=== PATIENT | male | born 1980 | race African-American/Black ===

== ENCOUNTER 2021-03-09 14:48 | Inpatient (IN) | payer MEDICAID ==
[~2021-03-09] VITALS: Ht 170.2 cm; Wt 99.8 kg
[~2021-03-09 14:48] MED LIST: CLON0.2T12 PO; LOSA100T3 PO; NIFE-32 PO
[2021-03-09] MEDS ORDERED: PIPERACILLIN/TAZ 3.375G PREMIX 50 ML IV ONE (15:30)
[2021-03-09 15:46] LABS: HEMATOCRIT. 40.9 % (42.0-52.0); HEMOGLOBIN. 14.4 g/dL (14.0-18.0); MEAN CORPUSCULAR HEMOGLOBIN 33.6 pg (28.0-32.0); MEAN CORPUSCULAR VOLUME 95.7 fL (80.0-94.0); MEAN PLATELET VOLUME 11.1 fl (7.4-10.4); PLATELET 165 x1000/uL (130-400); RED BLOOD CELL COUNT 4.28 mill/uL (4.7-6.1); RED CELL DISTRIBUTION WIDTH 15.4 % (11.6-14.6)
[2021-03-09 15:52] LABS: CHLORIDE 103 mEq/L (98-107)
[2021-03-09 15:54] LABS: D-DIMER 0.38 mg/L FEU (<0.50); INR 1.1; PROTHROMBIN TIME 11.9 sec (9.6-11.0)
[2021-03-09] MEDS ORDERED: NITROGLYCERIN OINT 1GM/INCH UDPKT TD ONE (16:00)
[2021-03-09 16:16] LABS: PLATELET ESTIMATE NORMAL
[2021-03-09] MEDS ORDERED: ASPIRIN 325MG EC TABLET PO ONE (17:15)
[2021-03-09] MEDS: NITROGLYCERIN 0.4MG TABLET SL SL PRN ×2 (17:22→17:57)
[2021-03-09] MEDS ORDERED: ONDANSETRON HCL 4MG/2ML INJ IV NR (17:30)
[2021-03-09] MEDS ORDERED: MORPHINE SULFATE 4 MG/ML CPJ (NOT FOR IM USE) IV NR (17:30)
[2021-03-09] MEDS ORDERED: LORAZEPAM 0.5MG TABLET PO PRN (19:45)
[2021-03-09] MEDS ORDERED: HYDROCODONE/ACETAMINOPHEN 5/325MG TABLET PO PRN (19:45)
[2021-03-09] MEDS ORDERED: DOCUSATE SODIUM 100MG CAPSULE PO PRN (19:45)
[2021-03-09] MEDS ORDERED: IPRATROPIUM/ALBUTEROL 0.5-3(2.5)MG/3ML NEB HHN PRN (19:45)
[2021-03-09] MEDS: FUROSEMIDE 40MG/4ML VIAL IV SCH (20:11)
[2021-03-09] MEDS: CLONIDINE 0.1MG TABLET PO PRN (20:11)
[2021-03-09] MEDS: HYDRALAZINE 20MG/ML VIAL IV PRN (20:57)
[2021-03-09] MEDS ORDERED: CEFTRIAXONE 1 G PREMIX 50 ML IV SCH (23:00)
[2021-03-09] MEDS ORDERED: DEXAMETHASONE 4MG TABLET PO SCH (23:00)
[2021-03-10] VITALS (9 sets, daily range): BP systolic 133–162; BP diastolic 83–119
[2021-03-10] MEDS ORDERED: AZITHROMYCIN 500MG in DEXTROSE 5% WATER 250ML IV SCH
[2021-03-10] MEDS: AZITHROMYCIN 500MG in DEXTROSE 5% WATER 250ML IV SCH (04:25)
[2021-03-10 05:43] LABS: HEMATOCRIT. 42.5 % (42.0-52.0); HEMOGLOBIN. 15.3 g/dL (14.0-18.0); MEAN CORPUSCULAR HEMOGLOBIN 34.6 pg (28.0-32.0); MEAN CORPUSCULAR VOLUME 96.4 fL (80.0-94.0); MEAN PLATELET VOLUME 11.6 fl (7.4-10.4); PLATELET 169 x1000/uL (130-400); RED BLOOD CELL COUNT 4.41 mill/uL (4.7-6.1); RED CELL DISTRIBUTION WIDTH 15.4 % (11.6-14.6)
[2021-03-10] MEDS: CLONIDINE 0.1MG TABLET PO PRN ×2 (05:59→16:54)
[2021-03-10] MEDS: FUROSEMIDE 40MG/4ML VIAL IV SCH ×2 (09:08→16:27)
[2021-03-10] MEDS: ENOXAPARIN 30MG/0.3ML SYR SUBCUT SCH ×2 (09:09→20:36)
[2021-03-10 13:54] LABS: PLATELET ESTIMATE NORMAL
[2021-03-10] MEDS: CEFTRIAXONE 1,000 MG in DEXTROSE 5% WATER 50 ML IV SCH (20:34)
[2021-03-10] MEDS: AMLODIPINE 5MG TABLET PO SCH (20:35)
[2021-03-10] MEDS: FAMOTIDINE 20MG TABLET PO SCH (20:35)
[2021-03-10] MEDS: DEXAMETHASONE 4MG TABLET PO SCH (20:35)
[2021-03-10] MEDS: CARVEDILOL 6.25 MG TABLET PO SCH (20:35)
[2021-03-11] VITALS: BP 148/100
[2021-03-11 00:51] LABS: CLARITY URINE CLEAR (CLEAR); COLOR URINE YELLOW (YELLOW); KETONES URINE NEGATIVE (NEGATIVE); LEUKOCYTE ESTERASE URINE NEGATIVE (NEGATIVE); NITRITE URINE NEGATIVE (NEGATIVE); OCCULT BLOOD URINE NEGATIVE (NEGATIVE); PROTEIN URINE TRACE (NEGATIVE); SPECIFIC GRAVITY URINE 1.015 (1.005-1.030); UROBILINOGEN URINE 0.2 E.U./dL (0.2-1.0)
[2021-03-11 04:00] VITALS: BP 148/109
[2021-03-11] MEDS: CLONIDINE 0.1MG TABLET PO PRN (04:01)
[2021-03-11 06:42] LABS: HEMATOCRIT. 44.1 % (42.0-52.0); MEAN CORPUSCULAR HEMOGLOBIN 32.8 pg (28.0-32.0); MEAN CORPUSCULAR VOLUME 96.6 fL (80.0-94.0); PLATELET 187 x1000/uL (130-400); RED BLOOD CELL COUNT 4.56 mill/uL (4.7-6.1); RED CELL DISTRIBUTION WIDTH 15.5 % (11.6-14.6)
[2021-03-11 08:00] VITALS: BP 134/89
[2021-03-11] MEDS: AMLODIPINE 5MG TABLET PO SCH (08:15)
[2021-03-11] MEDS: FUROSEMIDE 40MG/4ML VIAL IV SCH (08:15)
[2021-03-11] MEDS: ENOXAPARIN 30MG/0.3ML SYR SUBCUT SCH ×2 (08:15→20:18)
[2021-03-11] MEDS: ASPIRIN 81MG EC TABLET PO SCH (08:15)
[2021-03-11] MEDS: CARVEDILOL 6.25 MG TABLET PO SCH ×2 (08:15→20:18)
[2021-03-11] MEDS: AZITHROMYCIN 500MG in DEXTROSE 5% WATER 250ML IV SCH (08:16)
[2021-03-11 12:00] VITALS: BP 130/89
[2021-03-11 16:00] VITALS: BP 118/94
[2021-03-11 16:44] LABS: PLATELET ESTIMATE NORMAL
[2021-03-11 19:17] VITALS: BP 141/111
[2021-03-11] MEDS: CEFTRIAXONE 1,000 MG in DEXTROSE 5% WATER 50 ML IV SCH (20:17)
[2021-03-11] MEDS: DEXAMETHASONE 4MG TABLET PO SCH (20:17)
[2021-03-11] MEDS: FAMOTIDINE 20MG TABLET PO SCH (20:18)
[2021-03-12 00:05] VITALS: BP 133/86
[2021-03-12] MEDS: CLONIDINE 0.1MG TABLET PO PRN (03:35)
[2021-03-12 04:03] VITALS: BP 157/110
[2021-03-12 07:13] LABS: PHOSPHORUS 3.7 mg/dL (2.5-4.9)
[2021-03-12 08:00] VITALS: BP 150/110
[2021-03-12] MEDS: ASPIRIN 81MG EC TABLET PO SCH (08:03)
[2021-03-12] MEDS: BENZONATATE 100MG CAPSULE PO PRN (08:03)
[2021-03-12] MEDS: CARVEDILOL 6.25 MG TABLET PO SCH ×2 (08:03→20:34)
[2021-03-12 08:04] LABS: HEMATOCRIT. 45.8 % (42.0-52.0); HEMOGLOBIN. 15.2 g/dL (14.0-18.0); MEAN CORPUSCULAR HEMOGLOBIN 32.3 pg (28.0-32.0); MEAN CORPUSCULAR VOLUME 97.4 fL (80.0-94.0); MEAN PLATELET VOLUME 12.3 fl (7.4-10.4); PLATELET 181 x1000/uL (130-400); RED CELL DISTRIBUTION WIDTH 15.7 % (11.6-14.6)
[2021-03-12] MEDS: LOSARTAN POTASSIUM 50 MG TABLET PO SCH (08:04)
[2021-03-12] MEDS: ENOXAPARIN 30MG/0.3ML SYR SUBCUT SCH ×2 (08:04→20:33)
[2021-03-12] MEDS ORDERED: FUROSEMIDE 40MG/4ML VIAL IV SCH (09:00)
[2021-03-12] MEDS ORDERED: NIFEDIPINE XL 30MG TAB PO SCH ×2 (09:00)
[2021-03-12] MEDS: AZITHROMYCIN 500MG in DEXTROSE 5% WATER 250ML IV SCH (09:09)
[2021-03-12 12:00] VITALS: BP 126/100
[2021-03-12 14:14] LABS: PLATELET ESTIMATE NORMAL
[2021-03-12 16:00] VITALS: BP 143/103
[2021-03-12 20:00] VITALS: BP 161/118
[2021-03-12] MEDS: DEXAMETHASONE 4MG TABLET PO SCH (20:33)
[2021-03-12] MEDS: CEFTRIAXONE 1,000 MG in DEXTROSE 5% WATER 50 ML IV SCH (20:33)
[2021-03-12] MEDS: GUAIFENESIN 600MG ER TABLET PO SCH (20:33)
[2021-03-12] MEDS: FAMOTIDINE 20MG TABLET PO SCH (20:33)
[2021-03-13] VITALS (8 sets, daily range): BP systolic 119–169; BP diastolic 82–118
[2021-03-13] MEDS: BENZONATATE 100MG CAPSULE PO PRN ×3 (01:24→16:59)
[2021-03-13] MEDS: CARVEDILOL 6.25 MG TABLET PO SCH ×2 (08:04→20:07)
[2021-03-13] MEDS: NIFEDIPINE XL 60MG TAB PO SCH (08:04)
[2021-03-13] MEDS: ASPIRIN 81MG EC TABLET PO SCH (08:04)
[2021-03-13] MEDS: LOSARTAN POTASSIUM 50 MG TABLET PO SCH (08:04)
[2021-03-13] MEDS: ENOXAPARIN 30MG/0.3ML SYR SUBCUT SCH ×2 (08:04→20:07)
[2021-03-13] MEDS: FUROSEMIDE 40MG TABLET PO SCH (08:04)
[2021-03-13] MEDS: GUAIFENESIN 600MG ER TABLET PO SCH ×2 (08:04→20:07)
[2021-03-13] MEDS: AZITHROMYCIN 500MG in DEXTROSE 5% WATER 250ML IV SCH (08:05)
[2021-03-13] MEDS: CLONIDINE 0.1MG TABLET PO PRN (11:28)
[2021-03-13] MEDS: ALBUTEROL 6.7GM HFA INHALER ORI PRN (18:08)
[2021-03-13] MEDS: CEFTRIAXONE 1,000 MG in DEXTROSE 5% WATER 50 ML IV SCH (20:05)
[2021-03-13] MEDS: DEXAMETHASONE 4MG TABLET PO SCH (20:06)
[2021-03-13] MEDS: ACETAMINOPHEN 325MG TABLET PO PRN (20:06)
[2021-03-13] MEDS: FAMOTIDINE 20MG TABLET PO SCH (20:07)
[2021-03-14] VITALS (7 sets, daily range): BP systolic 144–175; BP diastolic 90–125
[2021-03-14] MEDS: BENZONATATE 100MG CAPSULE PO PRN ×2 (01:28→16:26)
[2021-03-14] MEDS: CLONIDINE 0.1MG TABLET PO PRN ×2 (04:02→08:56)
[2021-03-14] MEDS: ACETAMINOPHEN 325MG TABLET PO PRN ×2 (04:02→21:16)
[2021-03-14] MEDS: ALBUTEROL 6.7GM HFA INHALER ORI PRN ×2 (05:21→15:46)
[2021-03-14 07:42] LABS: BASOPHILS % 0.3 % (0.0-2.0); HEMATOCRIT. 45.3 % (42.0-52.0); HEMOGLOBIN. 15.9 g/dL (14.0-18.0); LYMPHOCYTES % 9.2 % (20.0-50.0); MEAN CORPUSCULAR HEMOGLOBIN 33.8 pg (28.0-32.0); MEAN CORPUSCULAR VOLUME 96.4 fL (80.0-94.0); MONOCYTES % 10.8 % (2.0-8.0); NEUTROPHILS % 79.7 % (40.0-76.0); RED CELL DISTRIBUTION WIDTH 15.4 % (11.6-14.6)
[2021-03-14 08:18] LABS: PLATELET 155 x1000/uL (130-400)
[2021-03-14] MEDS: CARVEDILOL 6.25 MG TABLET PO SCH (08:55)
[2021-03-14] MEDS: ASPIRIN 81MG EC TABLET PO SCH (08:55)
[2021-03-14] MEDS: GUAIFENESIN 600MG ER TABLET PO SCH (08:56)
[2021-03-14] MEDS: NIFEDIPINE XL 60MG TAB PO SCH (08:56)
[2021-03-14] MEDS: FUROSEMIDE 40MG TABLET PO SCH (08:56)
[2021-03-14] MEDS: LOSARTAN POTASSIUM 50 MG TABLET PO SCH (08:56)
[2021-03-14] MEDS: ENOXAPARIN 30MG/0.3ML SYR SUBCUT SCH ×2 (08:57→21:18)
[2021-03-14] MEDS ORDERED: AZITHROMYCIN 500 MG TABLET PO SCH (09:00)
[2021-03-14] MEDS: NIFEDIPINE XL 90MG TAB PO SCH (16:26)
[2021-03-14 17:38] LABS: BG BASE EXCESS -2.3 mmol/L (-2.0-2.0); BG CARBOXYHEMOGLOBIN 0.7 % (0.5-1.5); BG DEOXYHEMOGLOBIN 7.5 % (0.0-5.0); BG FRACTION INSPIRED OXYGEN 21; BG HCO3 ACT 20.1 mmol/L (22.0-26.0); BG METHEMOGLOBIN 0.2 % (0.0-1.5); BG OXYGEN SATURATION 92.4 % (92.0-98.5); BG OXYHEMOGLOBIN 91.6 % (94.0-97.0); BG PCO2 29.2 mmHg (35.0-45.0); BG PH 7.455 (7.350-7.450); BG PO2 62.8 mmHg (75.0-100.0); BG SAMPLE SITE RIGHT RADIAL; BG TOTAL HEMOGLOBIN 16.8 g/dL (12.0-18.0); BG VENT MODE ROOM AIR
[2021-03-14] MEDS ORDERED: NIFEDIPINE XL 60MG TAB PO SCH (18:00)
[2021-03-14] MEDS: DEXAMETHASONE 4MG TABLET PO SCH (21:17)
[2021-03-14] MEDS: FAMOTIDINE 20MG TABLET PO SCH (21:17)
[2021-03-14] MEDS: CARVEDILOL 12.5MG TABLET PO SCH (21:17)
[2021-03-14] MEDS: CEFTRIAXONE 1,000 MG in DEXTROSE 5% WATER 50 ML IV SCH (21:18)
[2021-03-15] VITALS: BP 123/77
[2021-03-15 04:00] VITALS: BP 115/70
[2021-03-15] MEDS: NIFEDIPINE XL 90MG TAB PO SCH (05:23)
[2021-03-15 06:39] LABS: BASOPHILS % 0.2 % (0.0-2.0); HEMATOCRIT. 45.2 % (42.0-52.0); HEMOGLOBIN. 15.6 g/dL (14.0-18.0); MEAN CORPUSCULAR HEMOGLOBIN 33.1 pg (28.0-32.0); MEAN CORPUSCULAR VOLUME 96.1 fL (80.0-94.0); MONOCYTES % 8.1 % (2.0-8.0); NEUTROPHILS % 79.7 % (40.0-76.0); RED BLOOD CELL COUNT 4.71 mill/uL (4.7-6.1); RED CELL DISTRIBUTION WIDTH 15.3 % (11.6-14.6)
[2021-03-15 08:00] VITALS: BP 125/87
[2021-03-15] MEDS: ENOXAPARIN 30MG/0.3ML SYR SUBCUT SCH ×2 (08:30→20:08)
[2021-03-15] MEDS: CARVEDILOL 12.5MG TABLET PO SCH (08:31)
[2021-03-15] MEDS: ASPIRIN 81MG EC TABLET PO SCH (08:31)
[2021-03-15] MEDS ORDERED: FUROSEMIDE 20MG/2ML VIAL IVP NR (09:30)
[2021-03-15] MEDS: GUAIFENESIN-DM 200MG-20MG/10ML UDC PO PRN ×2 (10:24→17:11)
[2021-03-15 12:38] VITALS: BP 107/73
[2021-03-15 13:24] LABS: MEAN PLATELET VOLUME 12.4 fl (7.4-10.4); PLATELET 158 x1000/uL (130-400)
[2021-03-15 13:56] LABS: SODIUM URINE RANDOM 20 mEq/L
[2021-03-15 16:00] VITALS: BP 133/88
[2021-03-15] MEDS: NIFEDIPINE XL 60MG TAB PO SCH (17:11)
[2021-03-15 20:00] VITALS: BP 142/91
[2021-03-15] MEDS: CARVEDILOL 6.25 MG TABLET PO SCH (20:07)
[2021-03-15] MEDS: FAMOTIDINE 20MG TABLET PO SCH (20:07)
[2021-03-15] MEDS: DEXAMETHASONE 4MG TABLET PO SCH (20:08)
[2021-03-15] MEDS: BENZONATATE 100MG CAPSULE PO PRN (20:18)
[2021-03-16] VITALS: BP 148/99
[2021-03-16] MEDS: GUAIFENESIN-DM 200MG-20MG/10ML UDC PO PRN ×2 (00:51→08:13)
[2021-03-16 04:00] VITALS: BP 122/79
[2021-03-16 07:03] LABS: BASOPHILS % 0.3 % (0.0-2.0); HEMATOCRIT. 45.2 % (42.0-52.0); HEMOGLOBIN. 15.7 g/dL (14.0-18.0); LYMPHOCYTES % 9.7 % (20.0-50.0); MEAN CORPUSCULAR HEMOGLOBIN 32.9 pg (28.0-32.0); MONOCYTES % 7.6 % (2.0-8.0); NEUTROPHILS % 82.4 % (40.0-76.0); RED BLOOD CELL COUNT 4.75 mill/uL (4.7-6.1); RED CELL DISTRIBUTION WIDTH 15.3 % (11.6-14.6)
[2021-03-16] MEDS: NIFEDIPINE XL 60MG TAB PO SCH ×2 (07:05→17:10)
[2021-03-16 07:23] LABS: CHLORIDE 97 mEq/L (98-107)
[2021-03-16 08:00] VITALS: BP 148/93
[2021-03-16] MEDS: ASPIRIN 81MG EC TABLET PO SCH (08:13)
[2021-03-16] MEDS: BENZONATATE 100MG CAPSULE PO PRN ×2 (08:13→22:08)
[2021-03-16] MEDS: CARVEDILOL 6.25 MG TABLET PO SCH ×2 (08:13→22:09)
[2021-03-16] MEDS: ENOXAPARIN 30MG/0.3ML SYR SUBCUT SCH ×2 (08:14→22:10)
[2021-03-16] MEDS: FUROSEMIDE 40MG/4ML VIAL IVP SCH (10:39)
[2021-03-16 11:05] LABS: MEAN PLATELET VOLUME 12.1 fl (7.4-10.4); PLATELET 162 x1000/uL (130-400)
[2021-03-16 11:30] LABS: BG BASE EXCESS -3.1 mmol/L (-2.0-2.0); BG CARBOXYHEMOGLOBIN 0.1 % (0.5-1.5); BG DEOXYHEMOGLOBIN 4.9 % (0.0-5.0); BG FRACTION INSPIRED OXYGEN 100; BG HCO3 ACT 19.5 mmol/L (22.0-26.0); BG METHEMOGLOBIN 0.2 % (0.0-1.5); BG OXYGEN SATURATION 95.1 % (92.0-98.5); BG OXYHEMOGLOBIN 94.8 % (94.0-97.0); BG PH 7.445 (7.350-7.450); BG SAMPLE SITE RIGHT RADIAL; BG TOTAL HEMOGLOBIN 15.7 g/dL (12.0-18.0); BG TOTAL RESPIRATORY RATE 40 b/min; BG VENT MODE MASK - BIPAP
[2021-03-16 12:00] VITALS: BP 139/85
[2021-03-16 16:00] VITALS: BP 154/98
[2021-03-16] MEDS ORDERED: IVERMECTIN 3 MG TABLET PO SCH (18:00)
[2021-03-16 20:00] VITALS: BP 160/91
[2021-03-16] MEDS: ACETAMINOPHEN 325MG TABLET PO PRN (22:08)
[2021-03-16] MEDS: DEXAMETHASONE 4MG TABLET PO SCH (22:09)
[2021-03-16] MEDS: FAMOTIDINE 20MG TABLET PO SCH (22:09)
[2021-03-17] VITALS: BP 91/64
[2021-03-17 04:24] VITALS: BP 132/74
[2021-03-17] MEDS: NIFEDIPINE XL 60MG TAB PO SCH ×2 (05:41→17:09)
[2021-03-17 06:36] LABS: BASOPHILS % 0.4 % (0.0-2.0); HEMATOCRIT. 46.5 % (42.0-52.0); LYMPHOCYTES % 8.6 % (20.0-50.0); MEAN CORPUSCULAR HEMOGLOBIN 32.9 pg (28.0-32.0); MEAN CORPUSCULAR VOLUME 95.6 fL (80.0-94.0); MONOCYTES % 5.1 % (2.0-8.0); NEUTROPHILS % 85.9 % (40.0-76.0); RED BLOOD CELL COUNT 4.86 mill/uL (4.7-6.1); RED CELL DISTRIBUTION WIDTH 15.7 % (11.6-14.6)
[2021-03-17 06:51] LABS: PHOSPHORUS 5.4 mg/dL (2.5-4.9)
[2021-03-17 07:59] VITALS: BP 120/84
[2021-03-17] MEDS: ENOXAPARIN 30MG/0.3ML SYR SUBCUT SCH ×2 (08:12→20:47)
[2021-03-17] MEDS: CARVEDILOL 6.25 MG TABLET PO SCH ×2 (08:12→20:45)
[2021-03-17] MEDS: FUROSEMIDE 40MG/4ML VIAL IVP SCH (08:12)
[2021-03-17] MEDS: GUAIFENESIN-DM 200MG-20MG/10ML UDC PO PRN (08:12)
[2021-03-17] MEDS: ASPIRIN 81MG EC TABLET PO SCH (08:12)
[2021-03-17] MEDS: BENZONATATE 100MG CAPSULE PO PRN ×2 (08:12→17:08)
[2021-03-17 10:50] LABS: BG BASE EXCESS -2.2 mmol/L (-2.0-2.0); BG CARBOXYHEMOGLOBIN 0.5 % (0.5-1.5); BG DEOXYHEMOGLOBIN 9.4 % (0.0-5.0); BG FRACTION INSPIRED OXYGEN 100; BG HCO3 ACT 20.5 mmol/L (22.0-26.0); BG METHEMOGLOBIN 0.3 % (0.0-1.5); BG OXYGEN SATURATION 90.5 % (92.0-98.5); BG OXYHEMOGLOBIN 89.8 % (94.0-97.0); BG PCO2 30.6 mmHg (35.0-45.0); BG PH 7.444 (7.350-7.450); BG PO2 56.8 mmHg (75.0-100.0); BG SAMPLE SITE RIGHT RADIAL; BG TOTAL HEMOGLOBIN 17.1 g/dL (12.0-18.0); BG VENT MODE HIGH FLOW
[2021-03-17 11:00] LABS: MEAN PLATELET VOLUME 11.7 fl (7.4-10.4); PLATELET 184 x1000/uL (130-400)
[2021-03-17 12:00] VITALS: BP 116/79
[2021-03-17 16:00] VITALS: BP 113/73
[2021-03-17 20:00] VITALS: BP 127/97
[2021-03-17] MEDS: DEXAMETHASONE 4MG TABLET PO SCH (20:46)
[2021-03-17] MEDS: FAMOTIDINE 20MG TABLET PO SCH (20:46)
[2021-03-18] VITALS: BP 120/84
[2021-03-18] MEDS: ACETAMINOPHEN 325MG TABLET PO PRN ×2 (00:47→21:00)
[2021-03-18 04:00] VITALS: BP 112/77
[2021-03-18] MEDS: NIFEDIPINE XL 60MG TAB PO SCH ×2 (06:18→17:23)
[2021-03-18 06:38] LABS: BASOPHILS % 0.2 % (0.0-2.0); HEMATOCRIT. 46.9 % (42.0-52.0); HEMOGLOBIN. 15.8 g/dL (14.0-18.0); LYMPHOCYTES % 7.3 % (20.0-50.0); MEAN CORPUSCULAR HEMOGLOBIN 32.3 pg (28.0-32.0); MEAN CORPUSCULAR VOLUME 95.9 fL (80.0-94.0); MEAN PLATELET VOLUME 11.6 fl (7.4-10.4); MONOCYTES % 4.4 % (2.0-8.0); NEUTROPHILS % 88.1 % (40.0-76.0); PLATELET 190 x1000/uL (130-400); RED BLOOD CELL COUNT 4.89 mill/uL (4.7-6.1); RED CELL DISTRIBUTION WIDTH 15.8 % (11.6-14.6)
[2021-03-18 07:41] LABS: PHOSPHORUS 5.5 mg/dL (2.5-4.9)
[2021-03-18 08:00] VITALS: BP 132/83
[2021-03-18 08:08] LABS: *CREATININE RANDOM URINE 81.8 mg/dL (Not Estab.); MICROALBUMIN RANDOM URINE 192.3 ug/mL (Not Estab.)
[2021-03-18] MEDS: ASPIRIN 81MG EC TABLET PO SCH (09:27)
[2021-03-18] MEDS: ENOXAPARIN 30MG/0.3ML SYR SUBCUT SCH (09:27)
[2021-03-18] MEDS: CARVEDILOL 6.25 MG TABLET PO SCH ×2 (09:27→21:00)
[2021-03-18 12:00] VITALS: BP 124/82
[2021-03-18 16:00] VITALS: BP 143/98
[2021-03-18] MEDS ORDERED: IVERMECTIN 3 MG TABLET PO SCH (18:00)
[2021-03-18 20:00] VITALS: BP 119/79
[2021-03-18] MEDS: DEXAMETHASONE 4MG TABLET PO SCH (21:00)
[2021-03-18] MEDS: FAMOTIDINE 20MG TABLET PO SCH (21:02)
[2021-03-19] VITALS (7 sets, daily range): BP systolic 116–163; BP diastolic 78–122
[2021-03-19] MEDS: NIFEDIPINE XL 60MG TAB PO SCH ×2 (05:35→21:17)
[2021-03-19] MEDS: ASPIRIN 81MG EC TABLET PO SCH (08:19)
[2021-03-19] MEDS: CARVEDILOL 6.25 MG TABLET PO SCH ×2 (08:20→21:16)
[2021-03-19] MEDS: ENOXAPARIN 40MG/0.4ML SYR SUBCUT SCH (08:20)
[2021-03-19 10:26] LABS: HEMATOCRIT. 48.2 % (42.0-52.0); HEMOGLOBIN. 16.4 g/dL (14.0-18.0); MEAN CORPUSCULAR HEMOGLOBIN 32.7 pg (28.0-32.0); MEAN PLATELET VOLUME 11.7 fl (7.4-10.4); PLATELET 230 x1000/uL (130-400); RED BLOOD CELL COUNT 5.02 mill/uL (4.7-6.1); RED CELL DISTRIBUTION WIDTH 15.7 % (11.6-14.6)
[2021-03-19 16:40] LABS: PLATELET ESTIMATE NORMAL
[2021-03-19] MEDS: DEXAMETHASONE 4MG TABLET PO SCH (21:16)
[2021-03-19] MEDS: FAMOTIDINE 20MG TABLET PO SCH (21:16)
[2021-03-20] VITALS: BP 148/92
[2021-03-20 04:00] VITALS: BP 126/91
[2021-03-20 06:43] LABS: HEMATOCRIT. 47.9 % (42.0-52.0); HEMOGLOBIN. 16.3 g/dL (14.0-18.0); MEAN CORPUSCULAR HEMOGLOBIN 32.7 pg (28.0-32.0); MEAN PLATELET VOLUME 11.4 fl (7.4-10.4); PLATELET 201 x1000/uL (130-400); RED BLOOD CELL COUNT 4.99 mill/uL (4.7-6.1); RED CELL DISTRIBUTION WIDTH 15.7 % (11.6-14.6)
[2021-03-20 08:00] VITALS: BP 142/102
[2021-03-20] MEDS: GUAIFENESIN-DM 200MG-20MG/10ML UDC PO PRN (08:28)
[2021-03-20] MEDS: ASPIRIN 81MG EC TABLET PO SCH (08:29)
[2021-03-20] MEDS: BENZONATATE 100MG CAPSULE PO PRN (08:29)
[2021-03-20] MEDS: CARVEDILOL 6.25 MG TABLET PO SCH ×2 (08:29→21:02)
[2021-03-20] MEDS: ENOXAPARIN 40MG/0.4ML SYR SUBCUT SCH (08:30)
[2021-03-20] MEDS: NIFEDIPINE XL 30MG TAB PO SCH (08:34)
[2021-03-20] MEDS ORDERED: SODIUM POLYSTYRENE SULFONATE 15 G/60 ML BOT PO SCH (10:00)
[2021-03-20 12:00] VITALS: BP 139/98
[2021-03-20 13:09] LABS: PLATELET ESTIMATE NORMAL
[2021-03-20 16:00] VITALS: BP 153/102
[2021-03-20 19:43] VITALS: BP 153/100
[2021-03-20] MEDS: NIFEDIPINE XL 60MG TAB PO SCH (21:01)
[2021-03-20] MEDS: DEXAMETHASONE 4MG TABLET PO SCH (21:02)
[2021-03-20] MEDS: FAMOTIDINE 20MG TABLET PO SCH (21:02)
[2021-03-21] VITALS (7 sets, daily range): BP systolic 139–169; BP diastolic 87–109
[2021-03-21 07:05] LABS: HEMATOCRIT. 47.5 % (42.0-52.0); HEMOGLOBIN. 16.2 g/dL (14.0-18.0); MEAN CORPUSCULAR HEMOGLOBIN 32.6 pg (28.0-32.0); MEAN CORPUSCULAR VOLUME 95.4 fL (80.0-94.0); MEAN PLATELET VOLUME 11.6 fl (7.4-10.4); PLATELET 190 x1000/uL (130-400); RED BLOOD CELL COUNT 4.97 mill/uL (4.7-6.1); RED CELL DISTRIBUTION WIDTH 15.6 % (11.6-14.6)
[2021-03-21] MEDS: ENOXAPARIN 40MG/0.4ML SYR SUBCUT SCH (08:14)
[2021-03-21] MEDS: BENZONATATE 100MG CAPSULE PO PRN (08:14)
[2021-03-21] MEDS: NIFEDIPINE XL 30MG TAB PO SCH ×2 (08:15→20:32)
[2021-03-21] MEDS: CARVEDILOL 6.25 MG TABLET PO SCH ×2 (08:15→20:32)
[2021-03-21] MEDS: ASPIRIN 81MG EC TABLET PO SCH (08:15)
[2021-03-21] MEDS: CLONIDINE 0.1MG TABLET PO PRN (12:29)
[2021-03-21 13:48] LABS: PLATELET ESTIMATE NORMAL
[2021-03-21] MEDS: DEXAMETHASONE 4MG TABLET PO SCH (20:30)
[2021-03-21] MEDS: CLONIDINE 0.1MG TABLET PO SCH ×2 (20:31→20:39)
[2021-03-21] MEDS: FAMOTIDINE 20MG TABLET PO SCH (20:35)
[2021-03-21] MEDS: NIFEDIPINE XL 60MG TAB PO SCH (20:47)
[2021-03-22 00:17] VITALS: BP 132/84
[2021-03-22 04:00] VITALS: BP 127/85
[2021-03-22 08:00] VITALS: BP 124/94
[2021-03-22 08:43] LABS: HEMATOCRIT. 48.1 % (42.0-52.0); HEMOGLOBIN. 16.3 g/dL (14.0-18.0); MEAN CORPUSCULAR VOLUME 94.8 fL (80.0-94.0); MEAN PLATELET VOLUME 11.5 fl (7.4-10.4); PLATELET 241 x1000/uL (130-400); RED BLOOD CELL COUNT 5.08 mill/uL (4.7-6.1); RED CELL DISTRIBUTION WIDTH 15.9 % (11.6-14.6)
[2021-03-22] MEDS: CLONIDINE 0.1MG TABLET PO SCH ×2 (08:47→20:51)
[2021-03-22] MEDS: ASPIRIN 81MG EC TABLET PO SCH (08:47)
[2021-03-22] MEDS: ENOXAPARIN 40MG/0.4ML SYR SUBCUT SCH (08:48)
[2021-03-22] MEDS: CARVEDILOL 6.25 MG TABLET PO SCH ×2 (08:48→20:51)
[2021-03-22 12:00] VITALS: BP 168/108
[2021-03-22] MEDS: CLONIDINE 0.1MG TABLET PO PRN (12:11)
[2021-03-22] MEDS ORDERED: SODIUM POLYSTYRENE SULFONATE 15 G/60 ML BOT PO NR (12:30)
[2021-03-22 13:53] LABS: PLATELET ESTIMATE NORMAL
[2021-03-22 16:00] VITALS: BP 149/88
[2021-03-22 20:00] VITALS: BP 157/98
[2021-03-22] MEDS: NIFEDIPINE XL 60MG TAB PO SCH (20:50)
[2021-03-22] MEDS: ACETAMINOPHEN 325MG TABLET PO PRN (20:50)
[2021-03-22] MEDS: DEXAMETHASONE 4MG TABLET PO SCH (20:50)
[2021-03-22] MEDS: FAMOTIDINE 20MG TABLET PO SCH (20:51)
[2021-03-23] VITALS: BP 139/87
[2021-03-23 04:00] VITALS: BP 151/105
[2021-03-23] MEDS: CLONIDINE 0.1MG TABLET PO PRN (05:22)
[2021-03-23 06:56] LABS: HEMATOCRIT. 44.4 % (42.0-52.0); MEAN CORPUSCULAR HEMOGLOBIN 32.2 pg (28.0-32.0); MEAN CORPUSCULAR VOLUME 95.4 fL (80.0-94.0); MEAN PLATELET VOLUME 11.1 fl (7.4-10.4); PLATELET 171 x1000/uL (130-400); RED BLOOD CELL COUNT 4.66 mill/uL (4.7-6.1); RED CELL DISTRIBUTION WIDTH 15.6 % (11.6-14.6)
[2021-03-23 08:00] VITALS: BP 134/85
[2021-03-23] MEDS: CARVEDILOL 6.25 MG TABLET PO SCH ×2 (08:33→20:13)
[2021-03-23] MEDS: BENZONATATE 100MG CAPSULE PO PRN ×2 (08:33→20:12)
[2021-03-23] MEDS: CLONIDINE 0.1MG TABLET PO SCH ×2 (08:34→20:13)
[2021-03-23] MEDS: ENOXAPARIN 30MG/0.3ML SYR SUBCUT SCH ×2 (08:34→20:14)
[2021-03-23] MEDS: ASPIRIN 81MG EC TABLET PO SCH (08:36)
[2021-03-23] MEDS: NIFEDIPINE XL 30MG TAB PO SCH (08:37)
[2021-03-23] MEDS: GUAIFENESIN-DM 200MG-20MG/10ML UDC PO PRN ×3 (08:38→17:41)
[2021-03-23 09:13] LABS: ATYPICAL LYMPHOCYTES 1
[2021-03-23 09:14] LABS: PLATELET ESTIMATE NORMAL
[2021-03-23 12:00] VITALS: BP 125/94
[2021-03-23 16:00] VITALS: BP 159/109
[2021-03-23] MEDS: CEFEPIME 1,000 MG in DEXTROSE 5% WATER 50 ML IV SCH (17:44)
[2021-03-23] MEDS: ERGOCALCIFEROL 50000UNITS CAPSULE PO SCH (17:44)
[2021-03-23 20:00] VITALS: BP 149/91
[2021-03-23] MEDS: FAMOTIDINE 20MG TABLET PO SCH (20:12)
[2021-03-23] MEDS: NIFEDIPINE XL 60MG TAB PO SCH (20:12)
[2021-03-23] MEDS: ASCORBIC ACID 500 MG TABLET PO SCH (20:12)
[2021-03-23] MEDS: DEXAMETHASONE 4MG TABLET PO SCH (20:13)
[2021-03-24] VITALS: BP 122/66
[2021-03-24] MEDS: CEFEPIME 1,000 MG in DEXTROSE 5% WATER 50 ML IV SCH ×3 (00:20→16:44)
[2021-03-24 04:00] VITALS: BP 129/87
[2021-03-24 07:15] LABS: HEMATOCRIT. 41.9 % (42.0-52.0); HEMOGLOBIN. 14.4 g/dL (14.0-18.0); MEAN CORPUSCULAR HEMOGLOBIN 32.3 pg (28.0-32.0); MEAN CORPUSCULAR VOLUME 94.1 fL (80.0-94.0); MEAN PLATELET VOLUME 11.5 fl (7.4-10.4); PLATELET 183 x1000/uL (130-400); RED BLOOD CELL COUNT 4.45 mill/uL (4.7-6.1); RED CELL DISTRIBUTION WIDTH 15.7 % (11.6-14.6)
[2021-03-24 07:37] LABS: CHLORIDE 99 mEq/L (98-107)
[2021-03-24 07:49] LABS: PHOSPHORUS 3.5 mg/dL (2.5-4.9)
[2021-03-24 08:00] VITALS: BP 141/91
[2021-03-24] MEDS: GUAIFENESIN-DM 200MG-20MG/10ML UDC PO PRN ×3 (08:13→16:44)
[2021-03-24] MEDS: BENZONATATE 100MG CAPSULE PO PRN ×2 (08:14→16:45)
[2021-03-24] MEDS: ASCORBIC ACID 500 MG TABLET PO SCH ×2 (08:14→20:43)
[2021-03-24] MEDS: ASPIRIN 81MG EC TABLET PO SCH (08:14)
[2021-03-24] MEDS: CARVEDILOL 6.25 MG TABLET PO SCH ×2 (08:14→20:43)
[2021-03-24] MEDS: CLONIDINE 0.1MG TABLET PO SCH ×2 (08:14→20:42)
[2021-03-24] MEDS: ENOXAPARIN 30MG/0.3ML SYR SUBCUT SCH ×2 (08:15→20:43)
[2021-03-24] MEDS: NIFEDIPINE XL 30MG TAB PO SCH (08:15)
[2021-03-24 09:33] LABS: BG BASE EXCESS -1.7 mmol/L (-2.0-2.0); BG CARBOXYHEMOGLOBIN 0.8 % (0.5-1.5); BG DEOXYHEMOGLOBIN 0.8 % (0.0-5.0); BG FRACTION INSPIRED OXYGEN 100; BG HCO3 ACT 21.5 mmol/L (22.0-26.0); BG METHEMOGLOBIN 0.3 % (0.0-1.5); BG OXYGEN SATURATION 99.2 % (92.0-98.5); BG OXYHEMOGLOBIN 98.1 % (94.0-97.0); BG PCO2 32.5 mmHg (35.0-45.0); BG PH 7.438 (7.350-7.450); BG PO2 165.9 mmHg (75.0-100.0); BG SAMPLE SITE RIGHT RADIAL; BG TOTAL HEMOGLOBIN 15.1 g/dL (12.0-18.0); BG VENT MODE HIGH FLOW
[2021-03-24 09:41] LABS: PLATELET ESTIMATE NORMAL
[2021-03-24 12:00] VITALS: BP 129/87
[2021-03-24 16:00] VITALS: BP 153/105
[2021-03-24 19:17] LABS: *AMPHETAMINES SCREEN URINE NEGATIVE (NEGATIVE); *BARBITURATES SCREEN URINE NEGATIVE (NEGATIVE); *BENZODIAZEPINES SCREEN URINE NEGATIVE (NEGATIVE); *COCAINE SCREEN URINE NEGATIVE (NEGATIVE)
[2021-03-24 19:18] LABS: CANNABINOID URINE SCREEN NEGATIVE (NEGATIVE); METHADONE URINE SCREEN NEGATIVE (NEGATIVE); OPIATES URINE SCREEN NEGATIVE (NEGATIVE); PHENCYCLIDINE URINE SCREEN NEGATIVE (NEGATIVE)
[2021-03-24 20:00] VITALS: BP 136/85
[2021-03-24] MEDS: DEXAMETHASONE 4MG TABLET PO SCH (20:42)
[2021-03-24] MEDS: FAMOTIDINE 20MG TABLET PO SCH (20:42)
[2021-03-24] MEDS: NIFEDIPINE XL 60MG TAB PO SCH (20:43)
[2021-03-25] VITALS (7 sets, daily range): BP systolic 125–141; BP diastolic 84–106
[2021-03-25] MEDS: CEFEPIME 1,000 MG in DEXTROSE 5% WATER 50 ML IV SCH ×3 (02:06→16:16)
[2021-03-25 06:25] LABS: HEMATOCRIT. 41.2 % (42.0-52.0); HEMOGLOBIN. 13.7 g/dL (14.0-18.0); MEAN CORPUSCULAR HEMOGLOBIN 31.5 pg (28.0-32.0); MEAN PLATELET VOLUME 11.6 fl (7.4-10.4); PLATELET 208 x1000/uL (130-400); RED BLOOD CELL COUNT 4.34 mill/uL (4.7-6.1); RED CELL DISTRIBUTION WIDTH 15.4 % (11.6-14.6)
[2021-03-25 06:55] LABS: CHLORIDE 101 mEq/L (98-107)
[2021-03-25 07:15] LABS: PHOSPHORUS 2.8 mg/dL (2.5-4.9)
[2021-03-25] MEDS: ENOXAPARIN 30MG/0.3ML SYR SUBCUT SCH ×2 (08:51→20:49)
[2021-03-25] MEDS: CARVEDILOL 6.25 MG TABLET PO SCH ×2 (08:52→20:49)
[2021-03-25] MEDS: ASCORBIC ACID 500 MG TABLET PO SCH ×2 (08:52→20:48)
[2021-03-25] MEDS: BENZONATATE 100MG CAPSULE PO PRN (08:52)
[2021-03-25] MEDS: CLONIDINE 0.1MG TABLET PO SCH ×2 (08:53→20:49)
[2021-03-25] MEDS: ASPIRIN 81MG EC TABLET PO SCH (08:53)
[2021-03-25] MEDS: NIFEDIPINE XL 30MG TAB PO SCH (08:54)
[2021-03-25 13:41] LABS: PLATELET ESTIMATE NORMAL
[2021-03-25] MEDS ORDERED: FUROSEMIDE 40MG/4ML VIAL IVP NR (13:45)
[2021-03-25] MEDS: FAMOTIDINE 20MG TABLET PO SCH (20:48)
[2021-03-25] MEDS: NIFEDIPINE XL 60MG TAB PO SCH (20:48)
[2021-03-25] MEDS: DEXAMETHASONE 4MG TABLET PO SCH (20:48)
[2021-03-25] MEDS: GUAIFENESIN-DM 200MG-20MG/10ML UDC PO PRN (21:35)
[2021-03-26] VITALS: BP 157/56
[2021-03-26] MEDS: CEFEPIME 1,000 MG in DEXTROSE 5% WATER 50 ML IV SCH ×3 (00:01→17:29)
[2021-03-26 06:19] LABS: CHLORIDE 100 mEq/L (98-107)
[2021-03-26 06:48] LABS: HEMOGLOBIN. 14.1 g/dL (14.0-18.0); MEAN CORPUSCULAR HEMOGLOBIN 32.5 pg (28.0-32.0); MEAN CORPUSCULAR VOLUME 96.7 fL (80.0-94.0); MEAN PLATELET VOLUME 11.5 fl (7.4-10.4); PLATELET 210 x1000/uL (130-400); RED BLOOD CELL COUNT 4.34 mill/uL (4.7-6.1); RED CELL DISTRIBUTION WIDTH 15.5 % (11.6-14.6)
[2021-03-26 07:56] VITALS: BP 150/90
[2021-03-26] MEDS: ALBUTEROL (0.083%) 2.5MG/3ML NEB HHN PRN ×2 (07:57→14:35)
[2021-03-26] MEDS: ASPIRIN 81MG EC TABLET PO SCH (09:02)
[2021-03-26] MEDS: ENOXAPARIN 30MG/0.3ML SYR SUBCUT SCH ×2 (09:03→20:32)
[2021-03-26] MEDS: CARVEDILOL 6.25 MG TABLET PO SCH ×2 (09:03→20:33)
[2021-03-26] MEDS: CLONIDINE 0.1MG TABLET PO SCH ×2 (09:03→20:33)
[2021-03-26] MEDS: ASCORBIC ACID 500 MG TABLET PO SCH ×2 (09:03→20:32)
[2021-03-26] MEDS: NIFEDIPINE XL 30MG TAB PO SCH (09:03)
[2021-03-26 10:49] LABS: PLATELET ESTIMATE NORMAL
[2021-03-26] MEDS ORDERED: FUROSEMIDE 40MG/4ML VIAL IVP NR (15:15)
[2021-03-26 18:00] VITALS: BP 145/103
[2021-03-26 20:00] VITALS: BP 149/102
[2021-03-26] MEDS: DEXAMETHASONE 4MG TABLET PO SCH (20:32)
[2021-03-26] MEDS: BENZONATATE 100MG CAPSULE PO PRN (20:35)
[2021-03-26] MEDS: FAMOTIDINE 20MG TABLET PO SCH (20:49)
[2021-03-26] MEDS: NIFEDIPINE XL 60MG TAB PO SCH (20:50)
[2021-03-26 22:00] VITALS: BP 142/83
[2021-03-27] VITALS (8 sets, daily range): BP systolic 137–158; BP diastolic 92–112
[2021-03-27] MEDS: CEFEPIME 1,000 MG in DEXTROSE 5% WATER 50 ML IV SCH ×3 (01:30→17:32)
[2021-03-27 06:55] LABS: CHLORIDE 99 mEq/L (98-107)
[2021-03-27 07:04] LABS: HEMATOCRIT. 42.8 % (42.0-52.0); HEMOGLOBIN. 14.1 g/dL (14.0-18.0); MEAN CORPUSCULAR HEMOGLOBIN 31.5 pg (28.0-32.0); MEAN CORPUSCULAR VOLUME 95.2 fL (80.0-94.0); MEAN PLATELET VOLUME 12.1 fl (7.4-10.4); PHOSPHORUS 2.8 mg/dL (2.5-4.9); PLATELET 217 x1000/uL (130-400); RED BLOOD CELL COUNT 4.49 mill/uL (4.7-6.1); RED CELL DISTRIBUTION WIDTH 15.8 % (11.6-14.6)
[2021-03-27] MEDS: NIFEDIPINE XL 30MG TAB PO SCH (10:13)
[2021-03-27] MEDS: CARVEDILOL 6.25 MG TABLET PO SCH ×2 (10:13→21:07)
[2021-03-27] MEDS: ASCORBIC ACID 500 MG TABLET PO SCH ×2 (10:13→21:16)
[2021-03-27] MEDS: ASPIRIN 81MG EC TABLET PO SCH (10:14)
[2021-03-27] MEDS: ENOXAPARIN 30MG/0.3ML SYR SUBCUT SCH ×2 (10:14→21:16)
[2021-03-27] MEDS: CLONIDINE 0.1MG TABLET PO SCH ×2 (10:14→21:07)
[2021-03-27 16:50] LABS: PLATELET ESTIMATE NORMAL
[2021-03-27] MEDS: NIFEDIPINE XL 60MG TAB PO SCH (21:07)
[2021-03-27] MEDS: DEXAMETHASONE 4MG TABLET PO SCH (21:08)
[2021-03-27] MEDS: FAMOTIDINE 20MG TABLET PO SCH (21:16)
[2021-03-28] VITALS (31 sets, daily range): BP systolic 98–202; BP diastolic 47–132
[2021-03-28] MEDS: CEFEPIME 1,000 MG in DEXTROSE 5% WATER 50 ML IV SCH ×3 (00:09→16:18)
[2021-03-28] MEDS: CLONIDINE 0.1MG TABLET PO PRN (05:41)
[2021-03-28 07:19] LABS: HEMOGLOBIN. 13.9 g/dL (14.0-18.0); MEAN CORPUSCULAR HEMOGLOBIN 31.1 pg (28.0-32.0); MEAN CORPUSCULAR VOLUME 94.4 fL (80.0-94.0); MEAN PLATELET VOLUME 11.2 fl (7.4-10.4); PLATELET 256 x1000/uL (130-400); RED BLOOD CELL COUNT 4.45 mill/uL (4.7-6.1); RED CELL DISTRIBUTION WIDTH 15.3 % (11.6-14.6)
[2021-03-28 07:35] LABS: CHLORIDE 99 mEq/L (98-107)
[2021-03-28 07:53] LABS: PHOSPHORUS 3.2 mg/dL (2.5-4.9)
[2021-03-28] MEDS: ENOXAPARIN 30MG/0.3ML SYR SUBCUT SCH ×2 (09:02→20:30)
[2021-03-28] MEDS: NIFEDIPINE XL 30MG TAB PO SCH (09:02)
[2021-03-28] MEDS: ASCORBIC ACID 500 MG TABLET PO SCH ×2 (09:02→20:32)
[2021-03-28] MEDS: CLONIDINE 0.1MG TABLET PO SCH ×2 (09:02→20:31)
[2021-03-28] MEDS: ASPIRIN 81MG EC TABLET PO SCH (09:02)
[2021-03-28] MEDS: CARVEDILOL 6.25 MG TABLET PO SCH (09:03)
[2021-03-28] MEDS: HYDRALAZINE 20MG/ML VIAL IV PRN (12:21)
[2021-03-28 14:08] LABS: PLATELET ESTIMATE NORMAL
[2021-03-28] MEDS: DEXAMETHASONE 4MG TABLET PO SCH (20:31)
[2021-03-28] MEDS: NIFEDIPINE XL 60MG TAB PO SCH (20:31)
[2021-03-28] MEDS: CARVEDILOL 12.5MG TABLET PO SCH (20:31)
[2021-03-28] MEDS: FAMOTIDINE 20MG TABLET PO SCH (20:31)
[2021-03-28] MEDS: BENZONATATE 100MG CAPSULE PO PRN (20:32)
[2021-03-29] VITALS (20 sets, daily range): BP systolic 106–181; BP diastolic 39–105
[2021-03-29 05:18] LABS: CHLORIDE 101 mEq/L (98-107)
[2021-03-29 05:24] LABS: PHOSPHORUS 2.9 mg/dL (2.5-4.9)
[2021-03-29 05:26] LABS: HEMATOCRIT. 40.6 % (42.0-52.0); HEMOGLOBIN. 13.6 g/dL (14.0-18.0); MEAN CORPUSCULAR HEMOGLOBIN 31.5 pg (28.0-32.0); MEAN CORPUSCULAR VOLUME 94.2 fL (80.0-94.0); MEAN PLATELET VOLUME 11.4 fl (7.4-10.4); PLATELET 260 x1000/uL (130-400); RED BLOOD CELL COUNT 4.31 mill/uL (4.7-6.1); RED CELL DISTRIBUTION WIDTH 15.3 % (11.6-14.6)
[2021-03-29] MEDS: ASCORBIC ACID 500 MG TABLET PO SCH ×2 (08:36→20:15)
[2021-03-29] MEDS: NIFEDIPINE XL 30MG TAB PO SCH (08:36)
[2021-03-29] MEDS: CLONIDINE 0.1MG TABLET PO SCH ×2 (08:36→20:15)
[2021-03-29] MEDS: CARVEDILOL 12.5MG TABLET PO SCH ×2 (08:36→20:15)
[2021-03-29] MEDS: ASPIRIN 81MG EC TABLET PO SCH (08:36)
[2021-03-29] MEDS: ENOXAPARIN 30MG/0.3ML SYR SUBCUT SCH ×2 (08:37→20:17)
[2021-03-29 14:15] LABS: PLATELET ESTIMATE NORMAL
[2021-03-29] MEDS: THROAT LOZENGES-BENZOCAINE/MENTH/CETYLPYRD CL LOZENGES MM SCH ×2 (18:14→20:12)
[2021-03-29] MEDS: NIFEDIPINE XL 60MG TAB PO SCH (20:15)
[2021-03-29] MEDS: DEXAMETHASONE 4MG TABLET PO SCH (20:16)
[2021-03-29] MEDS: FAMOTIDINE 20MG TABLET PO SCH (20:16)
[2021-03-30] VITALS (9 sets, daily range): BP systolic 125–156; BP diastolic 64–107
[2021-03-30 07:12] LABS: HEMATOCRIT. 40.6 % (42.0-52.0); HEMOGLOBIN. 13.8 g/dL (14.0-18.0); MEAN CORPUSCULAR HEMOGLOBIN 32.2 pg (28.0-32.0); MEAN CORPUSCULAR VOLUME 94.7 fL (80.0-94.0); MEAN PLATELET VOLUME 10.9 fl (7.4-10.4); PLATELET 246 x1000/uL (130-400); RED BLOOD CELL COUNT 4.29 mill/uL (4.7-6.1); RED CELL DISTRIBUTION WIDTH 15.6 % (11.6-14.6)
[2021-03-30 07:26] LABS: CHLORIDE 101 mEq/L (98-107)
[2021-03-30] MEDS: ERGOCALCIFEROL 50000UNITS CAPSULE PO SCH (08:59)
[2021-03-30] MEDS: ASPIRIN 81MG EC TABLET PO SCH (08:59)
[2021-03-30] MEDS: ENOXAPARIN 30MG/0.3ML SYR SUBCUT SCH (09:00)
[2021-03-30] MEDS: ASCORBIC ACID 500 MG TABLET PO SCH (09:00)
[2021-03-30] MEDS: CLONIDINE 0.1MG TABLET PO SCH (09:01)
[2021-03-30] MEDS: CARVEDILOL 12.5MG TABLET PO SCH (09:02)
[2021-03-30] MEDS: NIFEDIPINE XL 30MG TAB PO SCH (09:02)
[2021-03-30] MEDS: THROAT LOZENGES-BENZOCAINE/MENTH/CETYLPYRD CL LOZENGES MM SCH ×2 (09:13→13:16)
[2021-03-30] MEDS ORDERED: ASCO500T20 PO (11:37)
[2021-03-30] MEDS ORDERED: COR12 PO (11:37)
[2021-03-30] MEDS ORDERED: NIFE-33 PO (11:37)
[2021-03-30] MEDS ORDERED: NIFE-32 PO (11:37)
[2021-03-30] MEDS ORDERED: ASPI-1406 PO (11:37)
[2021-03-30 14:13] LABS: PLATELET ESTIMATE NORMAL
== END 2021-03-30 16:30 | disposition home or self-care (01) | DRG 720 ==
LOC: ER 14:48 → 7WST 18:18 → EDBEDREQSVC 18:26 → EDBEDREQTM 18:26 → EDBEDREQ 18:26 → ENRESERV 22:53 → 7WST 03-10 00:49 → 5EST 03-25 23:10
PROVIDERS: ADMIT Internal Medicine; ATTEND Internal Medicine
PROC: 5A09457 Assistance with Respiratory Ventilation, 24-96 Consecutive Hours, Continuous Positive Airway Pressure (ICD-10-PCS; principal; 2021-03-16)
PROC: 5A09357 Assistance with Respiratory Ventilation, Less than 24 Consecutive Hours, Continuous Positive Airway Pressure (ICD-10-PCS; 2021-03-23)
DX: A41.89 Other specified sepsis (principal); U07.1 COVID-19; J96.01 Acute respiratory failure with hypoxia; J12.82 Pneumonia due to coronavirus disease 2019; I27.81 Cor pulmonale (chronic); I13.0 Hypertensive heart and chronic kidney disease with heart failure and stage 1 through stage 4 chronic kidney disease, or unspecified chronic kidney disease; E66.9 Obesity, unspecified; E87.6 Hypokalemia; F17.210 Nicotine dependence, cigarettes, uncomplicated; I16.1 Hypertensive emergency; I42.0 Dilated cardiomyopathy; E87.1 Hypo-osmolality and hyponatremia; J44.0 Chronic obstructive pulmonary disease with (acute) lower respiratory infection; N18.30 Chronic kidney disease, stage 3 unspecified; I50.23 Acute on chronic systolic (congestive) heart failure; N17.0 Acute kidney failure with tubular necrosis; E87.5 Hyperkalemia; R74.01 Elevation of levels of liver transaminase levels; J40 Bronchitis, not specified as acute or chronic; Z91.14 Patient's other noncompliance with medication regimen; Z91.19 Patient's noncompliance with other medical treatment and regimen; Z79.899 Other long term (current) drug therapy; Z79.01 Long term (current) use of anticoagulants; Z68.34 Body mass index [BMI] 34.0-34.9, adult; Z82.49 Family history of ischemic heart disease and other diseases of the circulatory system
CPT/HCPCS: 36415; 36600; 71045; 76770; 80048; 80053; 80305; 81003; 82043; 82375; 82570; 82728; 82805; 83605; 83615; 83735; 83880; 83935; 84100; 84145; 84300; 84443; 84484; 84550; 85025; 85379; 86140; 87426; 93005; 93306; 93970; 94640; 94660; 99291; C1893; C9803; J0360; J0456; J0692; J0696; J1650; J1940; J2270; J2405; J2543; J7040; J7060; J8540; U0003; U0005